=== PATIENT | male | born 1955 | race Caucasian/White ===

== ENCOUNTER 2023-07-02 10:12 | Outpatient (CLI) | payer OTHER, SELFPAY | END 2023-07-02 10:13 | disposition home or self-care (01) | LOC: INJ CL 10:18 | PROVIDERS: Visit Provider Family Medicine | DX: M51.36 Other intervertebral disc degeneration, lumbar region (principal); M54.16 Radiculopathy, lumbar region | CPT/HCPCS: 62323; J0702; Q9966 ==